=== PATIENT | male | born 1995 | race Caucasian/White ===

== ENCOUNTER 2017-10-31 23:59 | Emergency (ER) | payer SELFPAY ==
[~2017-10-31] VITALS: Ht 165.1 cm; Wt 65.0 kg
[2017-11-01 00:31] VITALS: Ht 165.1 cm; Wt 65.0 kg
[2017-11-01 03:16] VITALS: BP 141/74
== END 2017-11-01 03:16 | disposition home or self-care (01) ==
LOC: ED 23:59
DX: S09.90XA Unspecified injury of head, initial encounter (principal); M25.512 Pain in left shoulder; V19.88XA Pedal cyclist (driver) (passenger) injured in other specified transport accidents, initial encounter; Y93.I9 Activity, other involving external motion; Y92.413 State road as the place of occurrence of the external cause; Y99.8 Other external cause status
CPT/HCPCS: Q0092